=== PATIENT | female | born 1945 | race Two or more races ===

== ENCOUNTER 2019-07-26 07:40 | Emergency (ER) | payer OTHER, MEDICAID ==
[~2019-07-26] VITALS: Ht 157.5 cm; Wt 53.1 kg
--- NOTE | 2019-07-26 07:40 | NUR ---
BIB RA 88 FROM HOME,WORSENING SOB,ALBUTEROL HHN ENROUTE, TO ER BED 8, HOOKED TO MONITOR AND POX, HOOKED TO O2 VIA NC AT 5LPM. CHANGED TO HOSP GOWN, WARM BLANKET PROVIDED, PATIENT AOx 4, DR SPEARS AT BEDSIDE.
[2019-07-26] MEDS ORDERED: ALBUTEROL FS 2.5 MG/3 ML VIAL.NEB ONE (07:46)
[2019-07-26] MEDS ORDERED: IPRATROPIUM NEB FS 0.5 MG/2.5 ML AMPUL.NEB ONE (07:46)
--- NOTE | 2019-07-26 07:48 | NUR ---
RT AT BEDSIDE FOR BREATHING TX
[2019-07-26] MEDS: ALBUTEROL FS 2.5 MG/3 ML VIAL.NEB CONTNEB ONE (07:50)
[2019-07-26] MEDS: IPRATROPIUM NEB FS 0.5 MG/2.5 ML AMPUL.NEB NEB ONE (07:50)
[2019-07-26] MEDS ORDERED: methylPREDNISolone SOD SUCC 125 MG/2ML VIAL ONE (07:55)
[2019-07-26] MEDS: methylPREDNISolone SOD SUCC 125 MG/2ML VIAL IV ONE (07:58)
[2019-07-26 08:07] LABS: BASOPHILS # (AUTO) 0.3 /CMM (0.0-0.2); EOSINOPHILS % (AUTO) 10.1 % (0.0-6.0); HEMATOCRIT 37 % (33-45); HEMOGLOBIN 12.3 g/dL (11.5-14.8); LYMPHOCYTES # (AUTO) 2.2 /CMM (0.8-4.8); LYMPHOCYTES % (AUTO) 39.5 % (20.0-44.0); MEAN CORPUSCULAR HGB CONC 33 g/dl (31.0-36.0); MEAN CORPUSCULAR VOLUME 93 fL (82-100); MONOCYTES # (AUTO) 0.3 /CMM (0.1-1.30); NEUTROPHILS # (AUTO) 2.2 /CMM (1.8-8.9); PLATELET COUNT (AUTO) 200 /CMM (150-450); RED BLOOD CELL COUNT(AUTO) 4.02 MIL/uL (4.0-5.2); WHITE BLOOD COUNT (AUTO) 5.6 K/uL (4.3-11.0)
[2019-07-26 08:11] LABS: BASOPHILS % (AUTO) 5.4 % (0.0-2.0)
[2019-07-26 08:14] LABS: CALCIUM, SERUM 8.8 mg/dL (8.5-10.1); CARBON DIOXIDE 30 mmol/L (21-32); CHLORIDE 107 mmol/L (98-107); CREATININE 0.9 mg/dL (0.6-1.3); GLUCOSE 148 mg/dL (74-106); POTASSIUM 4.3 mmol/L (3.5-5.1); SODIUM SERUM 141 mmol/L (136-145); UREA NITROGEN, BLOOD 16 mg/dL (7-18)
[2019-07-26 08:27] LABS: ALANINE AMINOTRANSFERASE 19 U/L (12-78); ALBUMIN 3.5 g/dL (3.4-5.0); ALKALINE PHOSPHATASE 103 U/L (46-116); ASPARTATE AMINOTRANSFERASE 17 U/L (15-37); B-TYPE NATRIURETIC PEPTIDE 241 PG/ML (0-125); BILIRUBIN,DIRECT 0.1 mg/dL (0.0-0.2); BILIRUBIN,TOTAL 0.4 mg/dL (0.2-1.0)
--- NOTE | 2019-07-26 09:50 | NUR ---
CALLED [facility] [phone]
--- NOTE | 2019-07-26 10:08 | NUR ---
PT WILL BE GOING TO [facility] ED ACCEMPTING MD: DR. MARX NUMBER FOR REPORT: [phone] ETA: [id number]
--- NOTE | 2019-07-26 10:47 | NUR ---
REPORT GIVEN TO CHU DONOHUE OF [facility] DEPT
[2019-07-26 10:55] VITALS: BP 115/78
--- NOTE | 2019-07-26 10:58 | NUR ---
Patient picked up by [facility] in stable condition. Clinicals and CD copy af images handed to EMT, patient will be brought to [facility] ED.
== END 2019-07-26 10:59 | disposition short-term general hospital (02) ==
LOC: ER 07:42
DX: J44.1 Chronic obstructive pulmonary disease with (acute) exacerbation (principal); I10 Essential (primary) hypertension; F17.200 Nicotine dependence, unspecified, uncomplicated; Z88.0 Allergy status to penicillin
CPT/HCPCS: 36415; 71045; 80048; 80076; 83880; 84484; 85025; 87040; 93005; 94640; 96374; 99285; J2930

== ENCOUNTER 2021-12-15 06:34 | Emergency (ER) | payer OTHER ==
[~2021-12-15] VITALS: Ht 152.4 cm; Wt 49.9 kg
[2021-12-15] MEDS ORDERED: ALBUTEROL FS 2.5 MG/3 ML VIAL.NEB ONE (06:43)
[2021-12-15] MEDS ORDERED: IPRATROPIUM NEB FS 0.5 MG/2.5 ML AMPUL.NEB ONE (06:43)
[2021-12-15] MEDS ORDERED: methylPREDNISolone SOD SUCC 125 MG/2ML VIAL ONE (06:45)
--- NOTE | 2021-12-15 06:45 | NUR ---
RT AT PT'S BEDSIDE FOR BREATHING TX
--- NOTE | 2021-12-15 06:46 | NUR ---
PATIENT [id number] FRM HOME C/O SOB THIS MORNING , AT HOME MEDS NOT WORKING. PATIENT TAKEN TO ER BED 10. PATIENT A/O X 4, RR LABORED, NO ACUTE DISTRESS NOTED. PATIENT CONNECTED TO CARDIAC AND POX MONITORS.
[2021-12-15] MEDS ORDERED: methylPREDNISolone SOD SUCC 125 MG/2ML VIAL IV ONE (07:00)
[2021-12-15] MEDS ORDERED: IPRATROPIUM NEB FS 0.5 MG/2.5 ML AMPUL.NEB NEB ONE (07:00)
[2021-12-15] MEDS ORDERED: ALBUTEROL FS 2.5 MG/3 ML VIAL.NEB CONTNEB ONE (07:00)
--- NOTE | 2021-12-15 07:00 | NUR ---
RAC #20G S/L BLOOD COLLECTED AND SENT TO LAB
[2021-12-15 07:20] LABS: BASOPHILS % (AUTO) 0.8 % (0.0-2.0); EOSINOPHILS % (AUTO) 5.7 % (0.0-6.0); HEMATOCRIT 37 % (33-45); HEMOGLOBIN 12.4 g/dL (11.5-14.8); LYMPHOCYTES # (AUTO) 2.3 K/uL (0.8-4.8); LYMPHOCYTES % (AUTO) 43.3 % (20.0-44.0); MEAN CORPUSCULAR HGB CONC 33 g/dl (31.0-36.0); MEAN CORPUSCULAR VOLUME 91 fL (82-100); MONOCYTES # (AUTO) 0.3 K/uL (0.1-1.30); MONOCYTES % (AUTO) 4.9 % (2.0-12.0); NEUTROPHILS # (AUTO) 2.4 K/uL (1.8-8.9); NEUTROPHILS % (AUTO) 45.3 % (43.0-81.0); PLATELET COUNT (AUTO) 189 K/uL (150-450); RED BLOOD CELL COUNT(AUTO) 4.11 MIL/uL (4.0-5.2); WHITE BLOOD COUNT (AUTO) 5.3 K/uL (4.3-11.0)
--- NOTE | 2021-12-15 07:30 | NUR ---
RECEIVED PT FROM TORRIE DONOHUE PT AWAKE AND ALERT FALLOW COMMEND RESPIRATION SPONT AND EASY NO SOB FIO2 2LNC
[2021-12-15 08:06] LABS: ALBUMIN 3.6 g/dL (3.4-5.0); BILIRUBIN,DIRECT 0.1 mg/dL (0.0-0.2); BILIRUBIN,TOTAL 0.4 mg/dL (0.2-1.0); CALCIUM, SERUM 9.1 mg/dL (8.5-10.1); CREATININE 0.8 mg/dL (0.6-1.3); TOTAL PROTEIN, SERUM 7.4 g/dL (6.4-8.2)
--- NOTE | 2021-12-15 08:14 | NUR ---
RESTING WATING FOR DESPO
[2021-12-15] MEDS ORDERED: PRED50TA PO (08:57)
--- NOTE | 2021-12-15 10:31 | NUR ---
pt fully awake and alert d/c instraction given to pt fully and verblized understood d/c home walking with assisst stasiy gait
--- NOTE | 2021-12-15 10:47 | NUR ---
CALLED [facility] FOR AMBULANCE TRANSFER. WILL TALK WITH DOCTOR FOR AMBULANCE AUTHORIZATION AND CALL US BACK.
--- NOTE | 2021-12-15 11:05 | NUR ---
SHANNAN TERRY CURRENTLY SPEAKING WITH DR. SPEARS.
--- NOTE | 2021-12-15 11:48 | NUR ---
RECIEVED A CALL FROM [facility] FOR REHAB MEDICINE. AMBULANCE ETA AND COMPANY WILL BE [facility] WITH A 12:30 PM ETA.
--- NOTE | 2021-12-15 12:20 | NUR ---
D/C INSTRACTION GIVEN TO PT AND EMT TRANSPORTER D/C HOME STABLE VS and condition
[2021-12-15 12:28] VITALS: BP 122/68
== END 2021-12-15 12:29 | disposition home or self-care (01) ==
LOC: ER 06:42
DX: J44.1 Chronic obstructive pulmonary disease with (acute) exacerbation (principal); I10 Essential (primary) hypertension; F17.200 Nicotine dependence, unspecified, uncomplicated; Z88.0 Allergy status to penicillin
CPT/HCPCS: 99285; 96374; 71045; 93005; 85025; 80048; 80076; 36415; 83880; 94640; J2930